=== PATIENT | male | born 1995 | race Caucasian/White ===

== ENCOUNTER 2018-07-11 12:32 | Emergency (ER) | payer OTHER ==
--- NOTE | 2018-07-11 14:03 | UC ---
Epistaxis Nasal HPI - HPI Summary HPI Summary: 22 male presents with nose injury. He tells me that today in football practice his chin guard slipped front his helmet and impacted his nose. It bled a lot, but stopped with direct pressure and ice. He is here for pain in his nose and is concerned it may be broken. Is able to breathe through his nose without pain or difficulty. Denies LOC, headache, or dizziness. - History of Current Complaint Stated Complaint: NOSE INJURY Time Seen by Provider: 07/11/18 14:02 Hx Obtained From: Patient Onset/Duration: Sudden Onset Severity Initially: Moderate Severity Currently: Mild Pain Intensity: 2 Pain Scale Used: 0-10 Numeric - Allergies/Home Medications Allergies/Adverse Reactions: Allergies Allergy/AdvReac Type Severity Reaction Status Date / Time No Known Allergies Allergy Verified 07/11/18 14:03 Home Medications: Home Medications Amphetamine MIXED SALTS TAB* [Adderall TAB*] 5 mg PO DAILY 07/11/18 [History Confirmed 07/11/18] PMH/Surg Hx/FS Hx/Imm Hx - Additional Past Medical History Additional PMH: ADHD - Surgical History Surgical History: None - Family History Known Family History: Positive: None - Social History Occupation: Student Lives: Dormitory/Roommates Alcohol Use: Occasionally Substance Use Type: None Smoking Status (MU): Never Smoked Tobacco Review of Systems Constitutional: Negative Skin: Negative Eyes: Negative ENT: Other - Nasal pain Respiratory: Negative Cardiovascular: Negative Neurovascular: Negative Neurological: Negative Psychological: Negative All Other Systems Reviewed And Are Negative: Yes Physical Exam - Summary Physical Exam Summary: GENERAL: NAD. WDWN. No pain distress. SKIN: No rashes, sores, lesions, or open wounds. HEENT: Head: AT/NC Eyes: EOM intact. Conjunctiva clear without inflammation or discharge. Ears: Hearing grossly normal. TMs intact, no bulging, erythema, or edema. Nose: RIGHT Nasal mucosa pink and moist with mild edema. LEFT nare: Moderate edema with moderate dried blood. Erythema. Mild TTP. Throat: Posterior oropharynx without exudates, erythema, or tonsillar enlargement. Uvula midline. NECK: Supple. FROM. CHEST: CTAB. No r/r/w. No accessory muscle use. Breathing comfortably and in no distress. CV: RRR. Without m/r/g. Pulses intact. Cap refill <2seconds NEURO: Alert. PSYCH: Age appropriate behavior. Triage Information Reviewed: Yes Vital Signs: Vital Signs: Temp Pulse Resp BP Pulse Ox 98.6 F 57 16 112/55 100 07/11/18 14:05 07/11/18 14:05 07/11/18 14:05 07/11/18 14:05 07/11/18 14:05 Vital Signs Reviewed: Yes Epistaxis Nasal Course/Dx - Course Course Of Treatment: XR: IMPRESSION: #. No evidence for nasal bone fracture. # . Nonspecific opacification of the LEFT maxillary sinus. Advised to apply ice and rest. F/u with ENT if pain persists. - Differential Dx/Diagnosis Provider Diagnoses: Nasal trauma Discharge - Sign-Out/Discharge Documenting (check all that apply): Patient Departure All imaging exams completed and their final reports reviewed: Yes - Discharge Plan Condition: Stable Disposition: HOME Patient Education Materials: Nasal Fracture (ED) Referrals: No Primary Care Phys,NOPCP [Primary Care Provider] - Betito Goldberg MD [Medical Doctor] - If Needed Additional Instructions: If you develop a fever, shortness of breath, chest pain, new or worsening symptoms - please call your PCP or go to the ED. 1) Rest and apply ice to the area 2) If you develop worsening symptoms or have any concerns - please call ENT at the number below to schedule a follow up appointment for further evaluation - Billing Disposition and Condition Condition: STABLE Disposition: Home
--- NOTE | 2018-07-11 14:30 | RAD ---
Indication: Pain at the bridge of the nose following injury yesterday. Comparison: No relevant prior exams available on the [facility] for comparison. Technique: Routine views of the nasal bones. Report: Intact nasal bones. Mild soft tissue swelling over the bridge of the nose. Opacified LEFT maxillary sinus. IMPRESSION: #. No evidence for nasal bone fracture. #. Nonspecific opacification of the LEFT maxillary sinus.
== END 2018-07-11 14:50 | disposition home or self-care (01) ==
LOC: UCEAST 12:32
DX: S09.92XA Unspecified injury of nose, initial encounter (principal); W22.8XXA Striking against or struck by other objects, initial encounter; Y93.61 Activity, american tackle football; Y92.321 Football field as the place of occurrence of the external cause; F90.9 Attention-deficit hyperactivity disorder, unspecified type
CPT/HCPCS: 70160; 99201; G0463